=== PATIENT | female | born 1975 | race Caucasian/White ===

== ENCOUNTER → 2017-01-14 | Outpatient (CLI) | payer OTHER ==
[2017-01-17 16:28] LABS: VARICELLA ZOS VIR IGG VALUE 1.79 INDEX
== END | disposition home or self-care (01) ==
LOC: C.LABBC 14:20
PROVIDERS: ATTEND Internal Medicine Geriatric Medicine
DX: Z00.00 Encounter for general adult medical examination without abnormal findings (principal)

== ENCOUNTER → 2017-01-27 | Outpatient (CLI) | payer OTHER ==
--- NOTE | 2017-01-27 12:42 | MAMMOGRAPHY REPORT ---
BILATERAL DIGITAL DIAGNOSTIC MAMMOGRAM TOMOSYNTHESIS WITH CAD AND TARGETED RIGHT ULTRASOUND: 01/28/20 CLINICAL HISTORY: Six-month follow-up of bilateral calcifications and right breast masses. TECHNIQUE: Breast tomosynthesis in addition to standard 2D mammography was performed. Current study was also evaluated with a Computer Aided Detection (CAD) system. Bilateral CC and MLO 2-D and hayde synthesis images and spot magnification bilateral CC and ML views were obtained. COMPARISON: Comparison is made to exams dated: 06/30/2016 ultrasound, 06/30/2016 mammogram, 12/18/2015 mammogram, 12/18/2015 ultrasound, 12/11/2015 mammogram - [facility], and 03/12/2009. BREAST COMPOSITION: The tissue of both breasts is extremely dense, which lowers the sensitivity of mammography. FINDINGS: There are no suspicious masses, calcifications, or areas of architectural distortion note d in either breast. There has been no significant interval change compared to prior exams. Multipl e scattered and grouped calcifications throughout both breasts are stable dating back to the 12/18/19 16 exam. Many of the calcifications demonstrate layering and are therefore consistent with benign m ilk of calcium. Given the long-term stability and benign morphology, the calcifications are conside red benign. Targeted ultrasound was performed of the area of the previously seen masses in the right breast. In the right breast at 1:00, 1 cm from the nipple, again noted is an oval anechoic circumscribed mass with a few thin internal septations, measuring 13 x 6 x 12 mm. This is consistent with a benign cys t. In the right breast at 3:00, 1 cm from the nipple, again noted is an oval anechoic circumscribed mass with a thin internal septation, measuring 6 x 2 x 5 mm, not significantly changed and consiste nt with a benign cyst. In the right breast at 10:00, 2 cm from the nipple, again noted is an oval a nechoic circumscribed mass with a thin internal septation, measuring 6 x 3 x 5 mm, also consistent w ith a benign cyst. No suspicious solid masses are evident. IMPRESSION: ACR BI-RADS CATEGORY 2: BENIGN, TARGETED ULTRASOUND ACR BI-RADS CATEGORY 2: BENIGN Bilateral benign-appearing calcifications are stable dating back to the December 2015 exam, and are considered benign given the morphology and stability. A few right breast cysts are again noted on u ltrasound. There is no mammographic or targeted sonographic evidence of malignancy. A 1 year screen ing mammogram is recommended. The patient has been verbally notified of the results. Approximately 10% of breast cancers are not detected with mammography. A negative mammographic repor t should not delay biopsy if a clinically suggestive mass is present. Lenka Bridges M.D. ah/:01/27/2017 12:00:35 [employer]: Ana Issa, [facility] letter sent: Normal 1/2 BI-RADS Code: ACR BI-RADS Category 2: Benign Ultrasound BI-RADS: ACR BI-RADS Category 2: Benign
== END | disposition home or self-care (01) ==
LOC: C.MAMM 10:55
PROVIDERS: ATTEND Obstetrics & Gynecology
DX: R92.1 Mammographic calcification found on diagnostic imaging of breast (principal); N63 Unspecified lump in breast; N60.11 Diffuse cystic mastopathy of right breast

== ENCOUNTER → 2017-02-04 | Outpatient (CLI) | payer OTHER | END | disposition home or self-care (01) | LOC: C.PAPS 16:18 | PROVIDERS: ATTEND Obstetrics & Gynecology | DX: Z01.419 Encounter for gynecological examination (general) (routine) without abnormal findings (principal) ==

== ENCOUNTER → 2017-04-27 | Outpatient (CLI) | payer OTHER ==
[2017-04-27 11:36] LABS: CHOLESTEROL/HDL RATIO 3.1
== END | disposition home or self-care (01) ==
LOC: C.LABBC 08:56
PROVIDERS: ATTEND Family Medicine
DX: Z13.220 Encounter for screening for lipoid disorders (principal)

== ENCOUNTER → 2017-11-03 | Outpatient (CLI) | payer OTHER | END | disposition home or self-care (01) | LOC: C.PATHSPEC 18:05 | PROVIDERS: ATTEND Plastic Surgery | DX: D22.72 Melanocytic nevi of left lower limb, including hip (principal) ==

== ENCOUNTER → 2018-01-11 | Outpatient (CLI) | payer OTHER ==
[2018-01-11 13:44] LABS: BASO % 0.4 %; BASO ABS # 0.03 K/uL (0-0.2); EOS % 2.6 %; EOS ABS # 0.21 K/uL (0-0.5); HEMATOCRIT 38.4 % (37-47); HEMOGLOBIN 12.7 g/dL (12.0-16.0); IG# 0.02 K/uL (0.00-0.02); MEAN CELL VOLUME 87.3 fL (80-100); MEAN CORPUSCULAR HEMOGLOBIN 28.9 pg (25-34); MEAN CORPUSCULAR HGB CONC 33.1 g/dl (32-36); MEAN PLATELET VOLUME 10.5 fL (7.4-10.4); MONO % 5.5 %; MONO ABS # 0.44 K/uL (0.11-0.59); NEUT % 61.2 %; NEUT ABS # 4.89 K/uL (1.4-6.5); PLATELET COUNT 350 K/uL (130-400); RED CELL DISTRIBUTION WIDTH SD 41.9 fL (36.4-46.3); WHITE BLOOD COUNT 7.99 K/uL (4.8-10.8)
== END | disposition home or self-care (01) ==
LOC: C.LABBC 11:14
PROVIDERS: ATTEND Nurse Practitioner Adult Health
DX: Z00.00 Encounter for general adult medical examination without abnormal findings (principal); R53.83 Other fatigue

== ENCOUNTER → 2018-02-25 | Outpatient (CLI) | payer OTHER ==
--- NOTE | 2018-02-28 07:49 | MAMMOGRAPHY REPORT ---
BILATERAL DIGITAL SCREENING MAMMOGRAM TOMOSYNTHESIS WITH CAD: 02/25/2018 CLINICAL HISTORY: Routine screening. TECHNIQUE: Breast tomosynthesis in addition to standard 2D mammography was performed. Current study was also evaluated with a Computer Aided Detection (CAD) system. COMPARISON: Comparison is made to exams dated: 01/27/2017 mammogram, 06/30/2016 mammogram, 12/18/2015 m ammogram, 12/11/2015 mammogram - [facility], 03/12/2009, and 01/27/2017 ultrasound - [facility]. BREAST COMPOSITION: The tissue of both breasts is extremely dense, which lowers the sensitivity of m ammography. FINDINGS: No suspicious masses, calcifications, or areas of architectural distortion are noted in ei ther breast. There has been no significant interval change compared to prior exams. Bilateral benign -appearing calcifications are not significantly changed. IMPRESSION: ACR BI-RADS CATEGORY 2: BENIGN There is no mammographic evidence of malignancy. A 1 year screening mammogram is recommended. The pa tient will receive written notification of the results. Approximately 10% of breast cancers are not detected with mammography. A negative mammographic report should not delay biopsy if a clinically suggestive mass is present. Lenka Bridges M.D. ah/:02/25/2018 16:25:01 [employer]: Narinder SHERIFF)(), [facility] letter sent: Normal 1/2 BI-RADS Code: ACR BI-RADS Category 2: Benign
== END | disposition home or self-care (01) ==
LOC: C.MAMM 10:52
PROVIDERS: ATTEND Obstetrics & Gynecology
DX: Z12.31 Encounter for screening mammogram for malignant neoplasm of breast (principal)

== ENCOUNTER → 2018-03-08 | Outpatient (CLI) | payer OTHER | END | disposition home or self-care (01) | LOC: C.PAPS 14:20 | PROVIDERS: ATTEND Obstetrics & Gynecology | DX: Z01.419 Encounter for gynecological examination (general) (routine) without abnormal findings (principal) ==